=== PATIENT | male | born 1995 | race Caucasian/White ===

== ENCOUNTER 2016-07-12 19:21 | Emergency (ER) | payer OTHER ==
[2016-07-12] MEDS ORDERED: Sodium Chloride 0.9% 1,000 ML IV ONE (19:38)
--- NOTE | 2016-07-12 19:44 | EDM.PDOC ---
ED HPI GENERAL MEDICAL PROBLEM - General Chief Complaint: Medication Administration Stated Complaint: NEEDS REFILL ON INSULIN Time Seen by Provider: 07/12/16 19:31 Source of Information: Reports: Patient History Limitations: Reports: No limitations - History of Present Illness INITIAL COMMENTS - FREE TEXT/NARRATIVE: HISTORY AND PHYSICAL: History of present illness: [20-year-old male with a history of insulin-dependent diabetes now came to the emergency department because his glucose is elevated and he is out of his insulin. She went to the pharmacy to get a refill but he is out of refills and never unable to contact his Dr. Mild tachycardia at 109 on arrival and glucose entry which to 220's. Patient with no complaints recent illness] Review of systems: As per history of present illness and below otherwise all systems reviewed and negative. Past medical history: As per history of present illness and as reviewed below otherwise noncontributory. Surgical history: As per history of present illness and as reviewed below otherwise noncontributory. Social history: No reported history of drug or alcohol abuse. Family history: As per history of present illness and as reviewed below otherwise noncontributory. Physical exam: Well appearing patient smiling comfortable mucous membranes mildly dry HEENT: Atraumatic, normocephalic, pupils reactive, negative for conjunctival pallor or scleral icterus, throat clear, neck supple, nontender, trachea midline. Lungs: Clear to auscultation, breath sounds equal bilaterally, chest nontender. Heart: S1S2, regular, negative for clicks, rubs, or JVD. Abdomen: Soft, nondistended, nontender. Negative for masses or hepatosplenomegaly. Negative for costovertebral tenderness. Pelvis: Stable nontender. Genitourinary: Deferred. Rectal: Deferred. Extremities: Atraumatic, negative for cords or calf pain. Neurovascular unremarkable. Neuro: Awake, alert, oriented. Cranial nerves grossly unremarkable. Cerebellum unremarkable. Motor and sensory unremarkable throughout. Exam nonfocal. Diagnostics: [] Therapeutics: [] Impression: [] Plan: [] Definitive disposition and diagnosis as appropriate pending reevaluation and review of above. Generalized Pain Score (Numeric/FACES): 0 - Related Data Allergies Allergy/AdvReac Type Severity Reaction Status Date / Time No Known Allergies Allergy Verified 07/12/16 19:32 Home Meds: Home Meds Insulin Aspart [NovoLOG] 10 units SQ TID 05/16/15 [History] Insulin Detemir [Levemir] 45 units SQ DAILY 09/07/14 [History] Past Medical History - Past Health History Medical/Surgical History: Denies Medical/Surgical History Social & Family History - Tobacco Use Smoking Status *Q: Never Smoker Years of Tobacco use: 2 Packs/Tins Daily: 1 - Alcohol Use Days Per Week of Alcohol Use: 0 - Recreational Drug Use Recreational Drug Use: No ED ROS GENERAL - Review of Systems Review Of Systems: See Below (Per history of present illness) ED EXAM, GENERAL - Physical Exam Exam: See Below (Per history of present illness) Course - Vital Signs Text/Narrative:: Signs and symptoms consistent with insulin noncompliance with mild hyperglycemia dry mucous membranes and mild tachycardia consistent with mild dehydration. Patient is well-appearing asymptomatic. Will hydrate, follow pulse for normalization, and prescribe insulin and anticipate outpatient followup. Patient agrees with outpatient followup and strict return precautions will be given. Prescription called to [place] [facility] and pharmacist will dispense to patient. Last Recorded V/S: Last Vital Signs Temp 36.9 C 07/12/16 19:32 Pulse 109 H 07/12/16 19:32 Resp 16 07/12/16 19:32 BP 130/78 07/12/16 19:32 Pulse Ox 99 07/12/16 19:32 - Orders/Labs/Meds Labs: Laboratory Tests 07/12/16 Range/Units 19:37 POC Glucose 228 H (60-110) mg/dL Meds: Medications Discontinued Medications Generic Name Dose Route Start Last Admin Trade Name Freq PRN Reason Stop Dose Admin Sodium Chloride 1,000 mls @ 999 mls/hr 07/12/16 19:38 07/12/16 19:43 Normal Saline IV 07/12/16 20:38 999 mls/hr STAT ONE Administration Departure - Departure Time of Disposition: 21:13 Disposition: Home, Self-Care 01 Condition: good Clinical Impression: Hyperglycemia due to type 1 diabetes mellitus, Mild dehydration, Noncompliance with medication regimen Referrals: Giuliano Maravilla DO [Primary Care Provider] - Forms: ED Department Discharge Additional Instructions: Your glucose was elevated today and he had clinical signs of mild dehydration with a rapid heart rate dry mucous membranes. It is critical that you adhere to your insulin regimen as prescribed. If you anticipate exhausting her supply be proactive and contact your doctor's office early in order to secure new prescriptions and refills. Do not wait until you're out of insulin to try to get the medication refilled. He is on insulin as prescribed drink plenty of fluids and followup with your DrGay in one day. Return immediately for new severe or worsening symptoms specifically signs of diabetic emergency such as worsening feelings of sickness, vomiting, rapid heart rate and worsening hyperglycemia.
[2016-07-12 21:26] VITALS: BP 155/68
== END 2016-07-12 21:24 | disposition home or self-care (01) ==
LOC: MW.ED 19:21
DX: E10.65 Type 1 diabetes mellitus with hyperglycemia (principal); E86.0 Dehydration; Z79.4 Long term (current) use of insulin; Z91.14 Patient's other noncompliance with medication regimen
CPT/HCPCS: 82962; 96360; 99281; J7040; 99283